=== PATIENT | male | born 1970 | race Caucasian/White ===

== ENCOUNTER 2023-11-04 10:56 | Emergency (ER) | payer OTHER ==
[~2023-11-04] VITALS: Ht 180.3 cm; Wt 70.3 kg
[2023-11-04 11:01] VITALS: BP 125/78; TEMP 97.9; O2SAT 98
[2023-11-04] MEDS ORDERED: KETO15CR2 TP (11:41)
== END 2023-11-04 11:56 | disposition home or self-care (01) ==
LOC: ER 11:02
DX: B35.6 Tinea cruris (principal); F17.200 Nicotine dependence, unspecified, uncomplicated